=== PATIENT | male | born 1960 | race American Indian/Alaskan Native ===

== ENCOUNTER 2017-05-24 22:31 | Observation (INO) | payer OTHER ==
[2017-05-24 23:41] LABS: BASO # 0.1 K/uL (0.0-0.2); BASO % 0.8 % (0.0-2.0); EOS % 0.4 % (0.0-4.0); HEMOGLOBIN 14.4 g/dL (12.0-18.0); LYMPH # 4.4 K/uL (1.0-4.3); LYMPH % 57.4 % (20.0-40.0); MEAN CORPUSCULAR HEMOGLOBIN 30.7 pg (27.0-31.0); MEAN CORPUSCULAR HGB CONC 35.7 g/dL (33.0-37.0); MEAN PLATELET VOLUME 8.1 fL (7.2-11.7); MONO # 0.7 K/uL (0.0-0.8); MONO % 9.9 % (0.0-10.0); NEUT # 2.4 K/uL (1.8-7.0); NEUT % 31.5 % (50.0-75.0); NRBC % 0.1 % (0.0-2.0); PLATELET COUNT 324 K/uL (130-400); RBC 4.69 Mil/uL (4.40-5.90); RED CELL DISTRIBUTION WIDTH 12.8 % (11.5-14.5); WHITE BLOOD COUNT 7.6 K/uL (4.8-10.8)
[2017-05-24 23:56] LABS: URINE BACTERIA RARE (<OCC); URINE BILIRUBIN NEGATIVE (NEGATIVE); URINE BLOOD NEGATIVE (NEGATIVE); URINE CLARITY Clear (Clear); URINE COLOR Yellow (YELLOW); URINE GLUCOSE (UA) NORMAL (Normal); URINE LEUKOCYTE ESTERASE NEG Leu/uL (Negative); URINE PROTEIN NEGATIVE (NEGATIVE)
[2017-05-24 23:58] LABS: ALB/GLOB RATIO 1.1 (1.0-2.1); ALBUMIN 3.9 g/dL (3.5-5.0); ALT/SGPT 95 U/L (21-72); AST/SGOT 116 U/L (17-59); BLOOD UREA NITROGEN 19 mg/dL (9-20); CALCIUM 8.9 mg/dl (8.6-10.4); GFR AFRICAN-AMERICAN > 60; GFR NON-AFRICAN AMERICAN > 60; LIPASE 277 U/L (23-300)
[2017-05-25 00:06] LABS: BARBITURATES, UR NEGATIVE (NEGATIVE); BENZODIAZEPINES, UR NEGATIVE (NEGATIVE); OPIATES, UR NEGATIVE (NEGATIVE); PHENCYCLIDINE, UR NEGATIVE (NEGATIVE)
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
[2017-05-25 00:15] LABS: CK-MB 22.8 ng/mL (0.0-3.38)
[2017-05-25] MEDS ORDERED: Sodium Chloride 0.9% 1,000 ML IV ONE (00:19)
[2017-05-25] MEDS ORDERED: Sodium Chloride 0.9% 1,000 ML ONE (00:30)
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
[2017-05-25 01:05] LABS: PROTHROMBIN TIME 11.7 SECONDS (9.7-12.2)
[2017-05-25 02:08] LABS: EOSINOPHIL 1 % (0-4); LYMPHOCYTE 47 % (20-40); MONOCYTE 9 % (0-10); NEUTROPHIL 34 % (50-75); PLATELET ESTIMATE NORMAL (NORMAL); REACTIVE LYMPHOCYTES 9 % (0-0); TOTAL CELLS COUNTED 100
[2017-05-25 02:19] VITALS: RESP 20
[2017-05-25] MEDS ORDERED: Sodium Chloride 0.9% 1,000 ML IV SCH (02:45)
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
[2017-05-25 07:47] VITALS: BP 114/75; TEMP 97.9; O2SAT 95
[2017-05-25 07:53] LABS: BASO % 0.6 % (0.0-2.0); EOS % 0.6 % (0.0-4.0); HEMOGLOBIN 13.5 g/dL (12.0-18.0); LYMPH # 2.7 K/uL (1.0-4.3); LYMPH % 62.7 % (20.0-40.0); MEAN CELL VOLUME 86.6 fL (80.0-94.0); MEAN CORPUSCULAR HEMOGLOBIN 30.5 pg (27.0-31.0); MEAN CORPUSCULAR HGB CONC 35.2 g/dL (33.0-37.0); MEAN PLATELET VOLUME 7.8 fL (7.2-11.7); MONO # 0.5 K/uL (0.0-0.8); MONO % 12.2 % (0.0-10.0); NEUT % 23.9 % (50.0-75.0); NRBC % 0.2 % (0.0-2.0); RBC 4.44 Mil/uL (4.40-5.90); RED CELL DISTRIBUTION WIDTH 12.8 % (11.5-14.5); WHITE BLOOD COUNT 4.3 K/uL (4.8-10.8)
[2017-05-25 08:26] LABS: ALB/GLOB RATIO 0.9 (1.0-2.1); ALT/SGPT 80 U/L (21-72); AST/SGOT 94 U/L (17-59); BLOOD UREA NITROGEN 13 mg/dL (9-20); GFR AFRICAN-AMERICAN > 60; GFR NON-AFRICAN AMERICAN > 60
[2017-05-25 08:27] LABS: CK-MB 13.2 ng/mL (0.0-3.38)
--- NOTE | 2017-05-25 08:41 | RAD ---
PROCEDURE: CHEST RADIOGRAPH, 1 VIEW HISTORY: Syncope COMPARISON: None available. FINDINGS: LUNGS: Clear. PLEURA: No pneumothorax or pleural fluid seen. CARDIOVASCULAR: Normal. OSSEOUS STRUCTURES: No significant abnormalities. VISUALIZED UPPER ABDOMEN: Normal. OTHER FINDINGS: None. IMPRESSION: No active disease.
[2017-05-25] MEDS ORDERED: Potassium Chloride 20 mEq ER Tab PO ONE (10:00)
[2017-05-25] MEDS ORDERED: Potassium Chloride 20 mEq ER Tab PO SCH (10:00)
[2017-05-25] MEDS ORDERED: Multiple Vitamins Tab PO SCH (10:00)
[2017-05-25 12:46] VITALS: PULSE 62
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
[2017-05-25 14:19] LABS: CK-MB 10.6 ng/mL (0.0-3.38)
--- NOTE | 2017-05-25 22:21 | CARD ---
APPROVED REPORT EXAM: Two-dimensional and M-mode echocardiogram with Doppler and color Doppler. Other Information Quality : GoodRhythm : INDICATION Chest Pain Syncope COCAINE 2D DIMENSIONS IVSd0.7 (0.7-1.1cm)LVDd4.6 (3.9-5.9cm) PWd0.9 (0.7-1.1cm)LVDs2.8 (2.5-4.0cm) FS (%) 39.4 %LVEF (%)70.0 (>50%) M-Mode DIMENSIONS RVDd2.78 (2.1-3.2cm)Left Atrium (MM)3.42 (2.5-4.0cm) IVSd1.08 (0.7-1.1cm)Aortic Root2.93 (2.2-3.7cm) LVDd4.79 (4.0-5.6cm)Aortic Cusp Exc.2.40 (1.5-2.0cm) PWd1.11 (0.7-1.1cm)FS (%) 35 % LVDs3.12 (2.0-3.8cm)LVEF (%)64 (>50%) Mitral Valve MV E Wjfvyfqg54.9cm/sMV A Exangzsm41.6cm/sE/A ratio1.0 TDI E/Lateral E'0.0E/Medial E'0.0 Tricuspid Valve TR Peak [id number]/sTR Peak Gr.[id number] LEFT VENTRICLE The left ventricle is normal size. There is normal left ventricular wall thickness. The left ventricular function is normal. The left ventricular ejection fraction is within the normal range. There is normal LV segmental wall motion. The left ventricular diastolic function is normal. RIGHT VENTRICLE The right ventricle is normal size. There is normal right ventricular wall thickness. ATRIA The left atrium size is normal. The right atrium size is normal. AORTIC VALVE The aortic valve is normal in structure. MITRAL VALVE The mitral valve is normal in structure. TRICUSPID VALVE There is mild tricuspid regurgitation. <Conclusion> Normal LV systolic function. Normal chamber size. Mild TR.
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
[2017-05-26] MEDS ORDERED: Pneumococcal 23-Valent Vaccine IM ONE (10:00)
--- NOTE | 2017-05-26 19:11 | CARD ---
APPROVED REPORT EKG Measurement Heart [id number] [place] [id number] <Conclusion> Normal sinus rhythm Inferior infarct, age undetermined Abnormal ECG
--- NOTE | 2017-05-26 19:14 | CARD ---
APPROVED REPORT EKG Measurement Heart [id number] <Conclusion> Normal sinus rhythm Inferior infarct, age undetermined Abnormal ECG
--- NOTE | 2017-05-26 19:16 | CARD ---
APPROVED REPORT EKG Measurement Heart [id number] [place] [id number] <Conclusion> Normal sinus rhythm Inferior infarct, age undetermined Abnormal ECG
== END 2017-05-25 15:23 ==
LOC: C.ER 22:31 → C.9E 05-25 00:45 → C.6T 05-25 01:19
PROVIDERS: ADMIT Family Medicine; ATTEND Family Medicine
DX: F10.120 Alcohol abuse with intoxication, uncomplicated (principal); F14.90 Cocaine use, unspecified, uncomplicated; E87.6 Hypokalemia; Z87.891 Personal history of nicotine dependence; Y90.0 Blood alcohol level of less than 20 mg/100 ml
CPT/HCPCS: 70450; 71045; 80053; 80320; 80324; 80345; 80346; 80349; 80353; 80358; 80361; 81001; 83690; 83735; 83992; 84100; 84484; 85025; 85610; 85730; 93306; 96360; G0378; J7040